=== PATIENT | male | born 1950 | race Caucasian/White ===

== ENCOUNTER 2018-07-17 06:51 | Day surgery (SDC) | payer MEDICARE ==
[2018-07-17 07:33] LABS: ADD MAN DIFF? NO
[2018-07-17 07:35] LABS: BASOPHILS % 0.7 % (0.0-2.0); EOSINOPHILS # 0.3 10^3/ul (0.0-0.5); EOSINOPHILS % 8.1 % (0.0-7.0); HEMATOCRIT 36.8 % (42.0-52.0); HEMOGLOBIN 12.3 g/dl (14.0-18.0); LYMPHOCYTES # 1.3 10^3/ul (0.8-2.9); LYMPHOCYTES % 31.6 % (15.0-51.0); MEAN CORPUSCULAR HEMOGLOBIN 31.5 pg (29.0-33.0); MEAN CORPUSCULAR HGB CONC 33.4 g/dl (32.0-37.0); MEAN CORPUSCULAR VOLUME 94.4 fl (82.0-101.0); MONOCYTE # 0.4 10^3/ul (0.3-0.9); MONOCYTES % 9.3 % (0.0-11.0); NEUTROPHILS % 50.1 % (39.0-77.0); PLATELET COUNT 155 10^3/UL (140-415); RED CELL DISTRIBUTION WIDTH 13.1 % (11.5-14.5)
[2018-07-17 07:35] LABS: WHITE BLOOD COUNT 4.1 10^3/ul (4.8-10.8)
[2018-07-17 07:43] LABS: HOLD TRANSMISSIONS 1
[2018-07-17 07:54] LABS: ANION GAP 15 (5-13); BLOOD UREA NITROGEN 20 mg/dl (7-20); CALCIUM 9.3 mg/dl (8.4-10.2); CARBON DIOXIDE 21 mmol/L (21-31); CHLORIDE 107 mmol/L (97-110); CHOL/HDL RATIO 6.1 RATIO; CHOLESTEROL 154 mg/dl (100-200); CREATININE 1.17 mg/dl (0.61-1.24); Estimated GFR > 60 mL/min (>60); GLUCOSE 147 mg/dl (70-220); HDL CHOLESTEROL 25 mg/dl (30-78); LDL CHOLESTEROL,CALCULATED 75 mg/dl; POTASSIUM 4.7 mmol/L (3.5-5.1); SODIUM 143 mmol/L (135-144); TRIGLYCERIDES 269 mg/dl (0-149)
[2018-07-17 07:56] LABS: INR 0.82; PROTIME 11.4 Sec (11.9-14.9); PT RATIO 0.9
[2018-07-17 07:57] LABS: PARTIAL THROMBOPLASTIN TIME 33.2 Sec (23.0-35.0)
[2018-07-17] MEDS ORDERED: SOD CHLORIDE 0.45% 1,000 ML IV (08:00)
[2018-07-17] MEDS: FAMOTIDINE 20 MG TAB PO (08:17)
[2018-07-17] MEDS: DIPHENHYDRAMINE 50 MG CAP PO (08:17)
[2018-07-17] MEDS: DIAZEPAM 5 MG TAB PO (08:17)
[2018-07-17] MEDS ORDERED: IODIXANOL LOCM 100 ML BTL (09:05)
[2018-07-17] MEDS ORDERED: MIDAZOLAM 1 MG/ML 2 ML INJ (09:05)
[2018-07-17] MEDS ORDERED: FENTAnyl 50 MCG/ML VIAL (09:06)
[2018-07-17] MEDS ORDERED: SOD CHLORIDE 0.9% 500 ML (11:08)
[2018-07-17] MEDS ORDERED: ONDANSETRON 4 MG INJ IV (11:30)
[2018-07-17] MEDS ORDERED: ACETAMINOPHEN 325 MG TAB PO (11:30)
[2018-07-17] MEDS ORDERED: AL HYDROX/MG HYDROX/SIMETH 30 ML CUP PO (11:30)
[2018-07-17] MEDS ORDERED: morphine 2 MG INJ IV (11:30)
[2018-07-17] MEDS: SOD CHLORIDE 0.9% 1,000 ML IV (12:25)
== END 2018-07-17 17:20 | disposition home or self-care (01) ==
LOC: SDS 06:51
DX: I42.9 Cardiomyopathy, unspecified (principal); I35.0 Nonrheumatic aortic (valve) stenosis; I10 Essential (primary) hypertension; E11.9 Type 2 diabetes mellitus without complications; I25.10 Atherosclerotic heart disease of native coronary artery without angina pectoris; E78.00 Pure hypercholesterolemia, unspecified; I49.9 Cardiac arrhythmia, unspecified
CPT/HCPCS: 71045; 80048; 80061; 82962; 85025; 85610; 85730; 93005; 93459